=== PATIENT | male | born 1945 | race Caucasian/White ===

== ENCOUNTER 2017-10-14 22:53 | Emergency (ER) | payer OTHER ==
[2017-10-14 23:00] VITALS: TEMP 97.9
[2017-10-15] MEDS ORDERED: HYDROCODONE/APAP 5/325 TAB PO ONE (01:18)
[2017-10-15 01:27] VITALS: RESP 16
--- NOTE | 2017-10-15 01:43 | EDPHY ---
H & P Stated Complaint: R SHOULDER PAIN, R EAR LAC/FALL Time Seen by Provider: 10/15/17 01:25 HPI/ROS: HPI: The patient presents with right shoulder pain for the last 1 day after a fall which occurred earlier today. He was walking at a restaurant and someone was using a hose, he tripped and fell on the holes landing on a laterally outstretched right arm. He had mild right shoulder pain that got progressively worse over the course of the day and he was unable to sleep because of this, so he comes into the emergency department. The pain is in his posterior shoulder, is achy in nature, and is worse when he sleeps on his side. He did sustain an ear laceration that was repaired with Dermabond and Steri- Strips at an urgent care earlier today. He did not have an evaluation of his shoulder pain. REVIEW OF SYSTEMS Constitutional: No fever, no chills. Eyes: No discharge. ENT: No sore throat. Cardiovascular: No chest pain, no palpitations. Respiratory: No cough, no shortness of breath. Gastrointestinal: No abdominal pain, no vomiting. Genitourinary: No hematuria. Musculoskeletal: No back pain. Skin: No rashes. Neurological: No headache. PMHx: History of trigger finger, hypertension TRAUMA PHYSICAL General Appearance: Alert, no distress Head: Atraumatic Eyes: Pupils equal, round, reactive ENT, Mouth: Right ear with laceration with Dermabond and Steri-Strips in place , well approximated, No hemotypanium, no oral trauma Neck: Non- tender, trachea midline Respiratory: No chest wall tenderness, no subcutaneous air, lungs clear bilaterallty Cardiovascular: Regular rate and rhythm Abdomen: Abdomen is soft and non-tender, pelvis stable Skin: No lacerations, No abrasion Back: No midline T/L/S pain Extremities: There is an abrasion to his right scapula, there is full range of motion of his shoulder though it is somewhat limited by pain, there is tenderness overlying his right scapula Neurological: A&Ox3, GCS=15,normal motor function with 5/5 strength in all 4 extremities, normal sensory exam Source: Patient Exam Limitations: No limitations - Personal History Current Tetanus Diphtheria and Acellular Pertussis (TDAP): Yes - Medical/Surgical History Hx Asthma: No Hx Chronic Respiratory Disease: No Hx Diabetes: No Hx Cardiac Disease: Yes Hx Renal Disease: No Hx Cirrhosis: No Hx Alcoholism: No Hx HIV/AIDS: No Hx Splenectomy or Spleen Trauma: No Other PMH: hypothyroid, hypertension. TURP, bilat cataract surg - Social History Smoking Status: Never smoked Constitutional: Initial Vital Signs Temperature (C) 36.6 C 10/14/17 22:58 Heart Rate 82 10/14/17 22:58 Respiratory Rate 14 10/14/17 22:58 Blood Pressure 186/69 H 10/14/17 22:58 O2 Sat (%) 97 10/14/17 22:58 O2 Delivery Mode Room Air Allergies/Adverse Reactions: Penicillins Allergy (Verified 10/23/15 20:46) Home Medications: Medication Instructions Recorded LEVOTHYROXINE SODIUM 0 mcg PO 03/10/11 Lisinopril 10/23/15 HCTZ (*) 10/14/17 Medical Decision Making - Diagnostics Imaging Results: Right shoulder x-ray shows no fracture, no dislocation, interpreted by me, radiology interpretation is pending. Imaging: I viewed and interpreted images myself Differential Diagnosis: This is a 72-year-old man who presents after a fall which occurred earlier today. He landed on an outstretched right arm and has right-sided shoulder pain as well as an ear laceration that was repaired appropriately an urgent care. On exam, he actually has quite good range of motion of his right shoulder though is tender posteriorly. Differential diagnosis includes humerus fracture, scapular fracture, rotator cuff injury, calcific tendinosis. In the emergency department, x-rays were obtained and were unremarkable for any fracture. The patient was placed in a sling. He will be discharged home with information for orthopedic follow-up. - Data Points Medications Given: Discontinued Medications Hydrocodone Bitart/Acetaminophen ([place] 5/325) 1 tab PO EDNOW ONE Stop: 10/15/17 01:19 Last Admin: 10/15/17 01:23 Dose: 1 tab Oxycodone/Acetaminophen (Percocet 5/325mg Prepack#4) 1 btl TAKEHOME EDNOW ONE Stop: 10/15/17 01:51 Last Admin: 10/15/17 01:55 Dose: 1 btl Departure - Departure Disposition: Home, Routine, Self-Care Clinical Impression: Fall Qualifiers: Encounter type: initial encounter Qualified Code(s): W19.XXXA - Unspecified fall, initial encounter Right shoulder pain Qualifiers: Chronicity: acute Qualified Code(s): M25.511 - Pain in right shoulder Condition: Good Instructions: Oxycodone/Acetaminophen (By mouth), How to Use a Sling (ED), Shoulder Pain (ED) Additional Instructions: Please return to the emergency department if your worse in any way. I have referred you to the orthopedist, whom you should follow up with if your symptoms continue for more than a few days. You may benefit from physical therapy referral. I recommend you take ibuprofen 400 mg every 6 hr for pain. You should also use ice. You should wear the sling for the next 2-3 days. If the radiologist notices a fracture that I did not, we will call you at home tomorrow morning. Referrals: Erasmo Boone MD [Primary Care Provider] - As per Instructions
[2017-10-15] MEDS ORDERED: OXYCODONE/APAP 5/325MG PREPACK#4 BTL TAKEHOME ONE (01:50)
[2017-10-15 02:03] VITALS: BP 148/78; PULSE 78; O2SAT 95
== END 2017-10-15 02:02 | disposition home or self-care (01) ==
DX: S49.91XA Unspecified injury of right shoulder and upper arm, initial encounter (principal); I10 Essential (primary) hypertension; W01.0XXA Fall on same level from slipping, tripping and stumbling without subsequent striking against object, initial encounter; Y92.511 Restaurant or cafe as the place of occurrence of the external cause; Y99.8 Other external cause status; Y93.01 Activity, walking, marching and hiking